=== PATIENT | female | born 1990 | race African-American/Black ===

== ENCOUNTER 2017-08-22 17:02 | Emergency (ER) | payer OTHER ==
--- NOTE | 2017-08-22 18:37 | ED ---
Lower Extremity - HPI Summary HPI Summary: This 27-year-old female fell down the stair steps yesterday she has left lateral ankle pain - History of Current Complaint Chief Complaint: EDExtremityLower Stated Complaint: LT ANKLE INJURY Time Seen by Provider: 08/22/17 18:21 Hx Obtained From: Patient Hx Last Menstrual Period: a little over a month ago Mechanism Of Injury: Twisted Onset of Pain: Immediate Onset/Duration: Days Severity Initially: Moderate Severity Currently: Moderate Pain Intensity: 9 Pain Scale Used: 0-10 Numeric Timing: Constant Location: Is Discrete @ - Lateral left ankle Character Of Pain: Aching, Throbbing Associated Signs And Symptoms: Positive: Swelling, Bruising Aggravating Factor(s): Standing, Ambulation Alleviating Factor(s): Rest, Elevation, Ice Able to Bear Weight: No - Allergies/Home Medications Allergies/Adverse Reactions: Allergies Allergy/AdvReac Type Severity Reaction Status Date / Time No Known Allergies Allergy Verified 08/22/17 19:02 PMH/Surg Hx/FS Hx/Imm Hx Previously Healthy: Yes - Immunization History Date of Influenza Vaccine: 06/03 Infectious Disease History: No Infectious Disease History: Denies: Traveled Outside the [place] in Last 30 Days - Family History Known Family History: Positive: None - Social History Occupation: Unemployed Lives: With Family Alcohol Use: Occasionally Hx Substance Use: No Substance Use Type: Reports: None Smoking Status (MU): Never Smoked Tobacco Review of Systems Constitutional: Negative Positive: Photophobia ENT: Negative Cardiovascular: Negative Gastrointestinal: Negative Genitourinary: Negative Positive: Arthralgia, Edema - left lateral ankle Positive: Bruising Neurological: Negative Psychological: Normal All Other Systems Reviewed And Are Negative: Yes Physical Exam Triage Information Reviewed: Yes Vital Signs On Initial Exam: Initial Vitals Temp Pulse Resp BP Pulse Ox 98.4 F 96 17 124/71 99 08/22/17 17:20 08/22/17 17:20 08/22/17 17:20 08/22/17 17:20 08/22/17 17:20 Vital Signs Reviewed: Yes Appearance: Positive: Well-Appearing, Well-Nourished, Pain Distress Skin: Positive: Warm, Skin Color Reflects Adequate Perfusion, Tender Head/Face: Positive: Normal Head/Face Inspection Eyes: Positive: Normal, EOMI, Conjunctiva Clear ENT: Positive: Normal ENT inspection, Hearing grossly normal. Negative: Trismus , Muffled voice, Hoarse voice Neck: Positive: Supple, Nontender Respiratory/Lung Sounds: Positive: Breath Sounds Present Cardiovascular: Positive: Normal, RRR, Pulses are Symmetrical in both Upper and Lower Extremities Musculoskeletal: Positive: Strength/ROM Intact - Left ankle, Limited @ - Left ankle, Edema Left - Ankle Neurological: Positive: Normal, Sensory/Motor Intact, Alert, Oriented to Person Place, Time Psychiatric: Positive: Normal AVPU Assessment: Alert - [place] Coma Scale Best Eye Response: 4 - Spontaneous Best Motor Response: 6 - Obeys Commands Best Verbal Response: 5 - Oriented Coma Scale Total: 15 Diagnostics - Vital Signs Vital Signs Temp Pulse Resp BP Pulse Ox 08/22/17 17:20 98.4 F 96 17 124/71 99 - Laboratory Lab Statement: Any lab studies that have been ordered have been reviewed, and results considered in the medical decision making process. - Radiology No standard instances Xray Interpretation: No Acute Changes Radiology Interpretation Completed By: ED Physician, Radiologist Lower Extremity Course/Dx - Course Assessment/Plan: This patient and we put into an Leobardo wrap and gel splint up on crutches nonweightbearing. She will be off work for 7 days she can use ibuprofen every 6 hours for pain and she'll follow up with orthopedics in 4-5 days - Diagnoses Provider Diagnoses: Left ankle sprain Discharge - Discharge Plan Condition: Stable Disposition: HOME Prescriptions: Ibuprofen TAB* [Motrin TAB* 600 MG] 600 mg PO Q6H PRN #30 tab PRN Reason: pain Patient Education Materials: Ibuprofen (By mouth), Ankle Sprain (ED), Crutch Instructions (ED), R.I.C.E. Treatment (ED) Forms: *Work Release Referrals: Norberto Lynch MD [Medical Doctor] - 5 Days
--- NOTE | 2017-08-22 20:23 | RAD ---
Indication: Left ankle pain. Sagittal and axial 3 views of left ankle demonstrate soft tissue swelling laterally. There is no fracture or dislocation. No other bone or joint abnormality is identified. IMPRESSION: Soft tissue swelling without fracture.
[2017-08-22] MEDS ORDERED: Ibuprofen TAB* 400 MG PO ONE (20:31)
[2017-08-22 21:15] VITALS: BP 121/72
== END 2017-08-22 21:05 | disposition home or self-care (01) ==
LOC: ED 17:02
DX: S93.402A Sprain of unspecified ligament of left ankle, initial encounter (principal); W10.9XXA Fall (on) (from) unspecified stairs and steps, initial encounter; Y92.9 Unspecified place or not applicable
CPT/HCPCS: 36415; 84702; 99282; A9270-GY

== ENCOUNTER 2017-11-19 07:49 | Emergency (ER) | payer OTHER ==
[2017-11-19 07:57] VITALS: BP 127/77
--- NOTE | 2017-11-19 09:14 | UC ---
Lower Extremity/Ankle HPI - HPI Summary HPI Summary: 3 months ago patient slipped on the steps and twisted her left ankle has lateral ankle pain and swelling and ecchymosis. Patient was unable to follow treatment recommendations was unable to maintain non weight bearing was able to follow up with orthopedic doctor. Patient comes in to urgent care today with continued pain and swelling in her lateral left ankle. - History of Current Complaint Chief Complaint: UCLowerExtremity Stated Complaint: ALLERGIES/Ankle INJURY Time Seen by Provider: 11/19/17 09:00 Hx Obtained From: Patient Hx Last Menstrual Period: 11/02/17 ?: No Onset/Duration: Gradual Onset, Lasting Days - +/- 12 weeks ago, Lasting Weeks Pain Intensity: 5 Pain Scale Used: 0-10 Numeric Aggravating Factor(s): Standing, Ambulation Able to Bear Weight: Yes - with pain - Allergies/Home Medications Allergies/Adverse Reactions: Allergies Allergy/AdvReac Type Severity Reaction Status Date / Time No Known Allergies Allergy Verified 11/19/17 07:58 Home Medications: Home Medications NK [No Home Medications Reported] 11/19/17 [History Confirmed 11/19/17] PMH/Surg Hx/FS Hx/Imm Hx Previously Healthy: Yes - Surgical History Surgical History: None - Family History Known Family History: Positive: None - Social History Occupation: Employed Full-time Lives: With Family Alcohol Use: Occasionally Substance Use Type: None Smoking Status (MU): Never Smoked Tobacco Review of Systems Constitutional: Negative Skin: Negative Eyes: Negative ENT: Negative Respiratory: Negative Cardiovascular: Negative Gastrointestinal: Negative Genitourinary: Negative Motor: Negative Neurovascular: Negative Musculoskeletal: Arthralgia - left lateral ankle, Edema - leaft lateral ankle Neurological: Negative Psychological: Negative Is Patient Immunocompromised?: No All Other Systems Reviewed And Are Negative: Yes Physical Exam Triage Information Reviewed: Yes Appearance: Well-Appearing, No Pain Distress, Well-Nourished Vital Signs: Initial Vital Signs Temp 97.6 F 11/19/17 07:53 Pulse 98 11/19/17 07:53 Resp 16 11/19/17 07:53 BP 127/77 11/19/17 07:53 Pulse Ox 100 11/19/17 07:53 Vital Signs Reviewed: Yes Eye Exam: Normal Eyes: Positive: Conjunctiva Clear ENT Exam: Normal ENT: Positive: Normal ENT inspection, Hearing grossly normal. Negative: Trismus , Muffled voice, Hoarse voice Dental Exam: Normal Neck exam: Normal Neck: Positive: Supple, Nontender Respiratory Exam: Normal Respiratory: Positive: Chest non-tender, No respiratory distress, No accessory muscle use Cardiovascular Exam: Normal Cardiovascular: Positive: RRR, Pulses Normal, Brisk Capillary Refill Musculoskeletal Exam: Normal Musculoskeletal: Positive: Strength Intact, ROM Intact, No Edema Neurological Exam: Normal Neurological: Positive: Alert, Muscle Tone Normal Psychological Exam: Normal Skin Exam: Normal Lower Extremity Course/Dx - Course Course Of Treatment: cam boot, ibuprofen, follow with Dr. Lynch--patient refused time off from work - Differential Dx/Diagnosis Provider Diagnoses: left ankle pain Discharge - Sign-Out/Discharge Documenting (check all that apply): Discharge/Admit/Transfer - Discharge Plan Condition: Stable Disposition: HOME Patient Education Materials: Ibuprofen (By mouth), Ankle Sprain (ED) Referrals: Norberto Lynch MD [Medical Doctor] - 3 Days - Billing Disposition and Condition Condition: STABLE Disposition: Home
--- NOTE | 2017-11-19 09:42 | RAD ---
HISTORY: Left ankle injury COMPARISONS: August 22, 2012 VIEWS: 3, Frontal, lateral, and oblique views of the left ankle FINDINGS: BONE DENSITY: Normal. BONES: There is no displaced fracture. JOINTS: There is no arthropathy. ALIGNMENT: There is no dislocation. SOFT TISSUES: There is mild circumferential soft tissue swelling. OTHER FINDINGS: None. IMPRESSION: SOFT TISSUE SWELLING. NO ACUTE OSSEOUS INJURY. IF SYMPTOMS PERSIST, RECOMMEND REPEAT IMAGING.
== END 2017-11-19 09:55 | disposition home or self-care (01) ==
LOC: UCEAST 07:49
DX: M25.572 Pain in left ankle and joints of left foot (principal); M25.472 Effusion, left ankle
CPT/HCPCS: 99212; G0463

== ENCOUNTER 2017-12-02 09:10 | Emergency (ER) | payer OTHER ==
--- OUTSIDE RECORDS SUMMARY | 2017-12-02 10:02 | XMS REPORT ---
:1990 External Reference #:[id number] Author Organization [facility] [employer] Address [address] [address] Phone [phone] Care Team Providers Name Role Phone Patient's Choice Primary Care Physician Unavailable Payers Type Date Identification Numbers Payment Provider Subscriber Commercial Policy Number: [id number] [employer] Alyssa Richardson PayID: [id number] [address] [address] [place] [address] Problems Description No Information Family History Date Family Member(s) Problem(s) Comments General Cancer General Diabetes General Hypertension General Stroke Social History Type Date Description Comments Lives With kids Occupation Currently Working ETOH Use Occasionally consumes alcohol Smoking Patient has never smoked Exercise Type/Frequency Exercises sporadically Allergies, Adverse Reactions, Alerts Date Description Reaction Status Severity Comments 01/08/2017 NKDA active Medications Medication Date Status Form Strength Qnty SIG Indications Ordering Provider No Active 01/08/2017 Active Unknown Medications Vital Signs Date Vital Result Comment 11/20/2017 Height 63 inches 5'3" Weight 153.00 lb Heart Rate 72 /min BP Systolic 112 mmHg BP Diastolic 80 mmHg Body Temperature 98.1 F Pain Level 5 BMI (Body Mass Index) 27.1 kg/m2 02/08/2017 Height 54 inches 4'6" Weight 145.00 lb Heart Rate 78 /min BP Systolic 128 mmHg BP Diastolic 80 mmHg Respiratory Rate 18 /min Body Temperature 97.2 F Pain Level 4 BMI (Body Mass Index) 35.0 kg/m2 01/24/2017 Height 54 inches 4'6" Weight 145.00 lb BP Systolic 118 mmHg BP Diastolic 72 mmHg Respiratory Rate 20 /min Body Temperature 97.4 F Pain Level 0 BMI (Body Mass Index) 35.0 kg/m2 01/12/2017 Height 54 inches 4'6" Weight 145.00 lb Heart Rate 80 /min Respiratory Rate 15 /min Pain Level 7 BMI (Body Mass Index) 35.0 kg/m2 01/08/2017 Height 54 inches 4'6" Weight 145.00 lb Heart Rate 76 /min BP Systolic 120 mmHg BP Diastolic 70 mmHg Respiratory Rate 16 /min Pain Level 6 BMI (Body Mass Index) 35.0 kg/m2 Results Description No Information Procedures Date CPT Code Description Status 01/12/2017 65457 Short Arm Cast Application Completed 01/08/2017 97954 Closed [place] Phalanx finger/thumb shaft w/o manipulation Completed Plan of Care 11/20/2017 - Carlos Alberto Baez, [id number] Sprain of other ligament of left ankle, initial encounterNew Xrays:MRI Lower Extremity Left W/OFollow up:Follow Up: after MRI
[2017-12-02 10:03] VITALS: BP 122/76
--- NOTE | 2017-12-02 10:15 | UC ---
Throat Pain/Nasal Jamel HPI - HPI Summary HPI Summary: Patient has had three days of sore throat, today she cannot swollow do to pain. right sided nasal congestion and fullness under her right eye. - History of Current Complaint Chief Complaint: UCRespiratory Stated Complaint: THROAT PAIN Time Seen by Provider: 12/02/17 10:06 Hx Obtained From: Patient Hx Last Menstrual Period: 12/02/17 ?: No Onset/Duration: Sudden Onset, Lasting Days Severity: Severe Pain Intensity: 9 Cough: Productive Associated Signs & Symptoms: Positive: Dysphagia, Hoarseness, Sinus Discomfort, Nasal Discharge - Allergies/Home Medications Allergies/Adverse Reactions: Allergies Allergy/AdvReac Type Severity Reaction Status Date / Time No Known Allergies Allergy Verified 12/02/17 10:03 PMH/Surg Hx/FS Hx/Imm Hx Previously Healthy: Yes - Surgical History Surgical History: None - Family History Known Family History: Positive: None Negative: Cardiac Disease, Hypertension - Social History Alcohol Use: Occasionally Substance Use Type: None Smoking Status (MU): Never Smoked Tobacco Review of Systems Constitutional: Negative Skin: Negative Eyes: Negative ENT: Sore Throat, Ear Ache, Nasal Discharge, Sinus Congestion Respiratory: Cough Cardiovascular: Negative Gastrointestinal: Negative Genitourinary: Negative Motor: Negative Neurovascular: Negative Musculoskeletal: Negative Neurological: Negative Psychological: Negative Is Patient Immunocompromised?: No All Other Systems Reviewed And Are Negative: Yes Physical Exam Triage Information Reviewed: Yes Appearance: Well-Nourished, Ill-Appearing, Pain Distress Vital Signs: Initial Vital Signs Temp 98.3 F 12/02/17 10:01 Pulse 87 12/02/17 10:01 Resp 18 12/02/17 10:01 BP 122/76 12/02/17 10:01 Pulse Ox 99 12/02/17 10:01 Vital Signs Reviewed: Yes Eye Exam: Normal ENT: Positive: Pharyngeal erythema, Nasal congestion, Nasal drainage, TM bulging Dental Exam: Normal Neck exam: Normal Neck: Positive: Supple, Nontender, Enlarged Nodes @ - left tonsillar Respiratory Exam: Normal Respiratory: Positive: Chest non-tender, Lungs clear, Normal breath sounds Cardiovascular Exam: Normal Cardiovascular: Positive: RRR, No Murmur, Pulses Normal Abdominal Exam: Normal Abdomen Description: Positive: Nontender, No Organomegaly, Soft Musculoskeletal Exam: Normal Neurological Exam: Normal Psychological Exam: Normal Skin Exam: Normal Throat Pain/Nasal Course/Dx - Course Course Of Treatment: hx obtained,exam performed ,meds reviewed, rapid strep obtained. - Differential Dx/Diagnosis Differential Diagnosis/HQI/PQRI: Laryngitis, Otitis Media, Pharyngitis, Sinusitis, URI Provider Diagnoses: right maxillary sinusitis Discharge - Sign-Out/Discharge Documenting (check all that apply): Discharge/Admit/Transfer - Discharge Plan Condition: Stable Disposition: HOME Prescriptions: Amoxicillin PO (*) [Amoxicillin 875 MG (*)] 875 mg PO BID #14 tab Patient Education Materials: Sinusitis (ED) Referrals: No Primary Care Phys,NOPCP [Primary Care Provider] - Additional Instructions: 1. take the medication as prescribed. 2. Warm salt water gargles, 3. Get plenty of rest and fluids 4. Follow up as needed. - Billing Disposition and Condition Condition: STABLE Disposition: Home
== END 2017-12-02 10:45 | disposition home or self-care (01) ==
LOC: UCEAST 09:10
DX: J32.0 Chronic maxillary sinusitis (principal)
CPT/HCPCS: 87651; 99212; G0463

== ENCOUNTER 2018-01-02 09:28 | Emergency (ER) | payer OTHER ==
[2018-01-02 09:37] VITALS: BP 112/72
--- NOTE | 2018-01-02 09:49 | UC ---
Throat Pain/Nasal Jaeml HPI - HPI Summary HPI Summary: Pt is a 26 y/o F c/o throat pain onsetting yesterday worsening by the time ready to leave for work. Assoc. Sx: congestion, sinus pressure, ear irritation. Denies: wheezing. Notes she had a sinus infection 1 month ago but did not finish meds. Pt also notes ear ringing for 3 months pretty bad worsened by lying down associated with sinus issues. - History of Current Complaint Chief Complaint: UCGeneralIllness Stated Complaint: SORE THROAT Hx Obtained From: Patient Hx Last Menstrual Period: 12/02/17 Onset/Duration: Lasting Days - Sunday, Still Present, Worse Since - AM Severity: Severe Pain Intensity: 10 Pain Scale Used: 0-10 Numeric Associated Signs & Symptoms: Positive: Sinus Discomfort, Nasal Discharge. Negative: Wheezing, Fever - Allergies/Home Medications Allergies/Adverse Reactions: Allergies Allergy/AdvReac Type Severity Reaction Status Date / Time No Known Allergies Allergy Verified 01/02/18 09:38 PMH/Surg Hx/FS Hx/Imm Hx Endocrine History: Other - Neg: DM Other Endocrine History: . Cardiovascular History: Other - neg: CAD, HTN Other Cardiovascular History: . - Surgical History Surgical History: Yes Surgery Procedure, Year, and Place: IUD REMOVAL - Family History Known Family History: Positive: Hypertension, Diabetes - Social History Occupation: Employed Full-time Lives: With Family Alcohol Use: Occasionally Substance Use Type: None Smoking Status (MU): Never Smoked Tobacco Review of Systems Constitutional: Negative - fever ENT: Sore Throat, Ear Ache, Sinus Congestion Respiratory: Negative - wheezing All Other Systems Reviewed And Are Negative: Yes Physical Exam - Summary Physical Exam Summary: General: well-appearing, no pain distress Skin: warm, color reflects adequate perfusion, dry Head: normal Eyes: EOMI, ROCAEL ENT: Posterior pharynx erythema, positive anterior cervical lymphadenopathy Neck: supple, nontender Respiratory: CTA, breath sounds present Cardiovascular: RRR Abdomen: soft, nontender Bowel: present Musculoskeletal: normal, strength/ROM intact Neurological: sensory/motor intact, A&O x3 Psychological: affect/mood appropriate Triage Information Reviewed: Yes Vital Signs: Initial Vital Signs Temp 98.6 F 01/02/18 09:29 Pulse 55 01/02/18 09:29 Resp 16 01/02/18 09:29 BP 112/72 01/02/18 09:29 Pulse Ox 100 01/02/18 09:29 Vital Signs Reviewed: Yes Throat Pain/Nasal Course/Dx - Course Course Of Treatment: PATIENT REPORTS > 10 DAYS OF SINUS SX. F/U PMD; RECHECK SOONER IF WORSE. - Differential Dx/Diagnosis Provider Diagnoses: SINUSITIS. PHARYNGITIS Discharge - Sign-Out/Discharge Documenting (check all that apply): Patient Departure - Discharge Plan Condition: Stable Disposition: HOME Prescriptions: Amoxicillin/Clavulanate TAB* [Augmentin TAB 875*] 875 mg PO BID #20 tab Patient Education Materials: Pharyngitis (ED), Sinusitis (ED) Forms: *Work Release Referrals: [facility] [place] [facility] [Outside] Additional Instructions: FOLLOW UP WITH YOUR DOCTOR. GET RECHECKED FOR ANY WORSENING OF YOUR CONDITION OR QUESTIONS OR CONCERNS. - Billing Disposition and Condition Condition: STABLE Disposition: Home
== END 2018-01-02 10:32 | disposition home or self-care (01) ==
LOC: UCEAST 09:28
DX: J32.9 Chronic sinusitis, unspecified (principal); J02.9 Acute pharyngitis, unspecified
CPT/HCPCS: 87651; 99212; G0463

== ENCOUNTER 2018-01-17 09:18 | Emergency (ER) | payer OTHER ==
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
--- NOTE | 2018-01-17 12:31 | RAD ---
INDICATION: Right knee injury. TECHNIQUE: 4 views of the right knee were obtained. FINDINGS: The bones are normal alignment. There is a small joint effusion present. No fracture is seen. Joint spaces appear maintained. IMPRESSION: SMALL JOINT EFFUSION, NO FRACTURE IS SEEN.
[2018-01-17 13:21] VITALS: BP 120/84
== END 2018-01-17 13:20 | disposition home or self-care (01) ==
LOC: ED 09:18
DX: S83.91XA Sprain of unspecified site of right knee, initial encounter (principal); Y09 Assault by unspecified means; Y92.9 Unspecified place or not applicable; Y99.9 Unspecified external cause status; Z33.1 Pregnant state, incidental
CPT/HCPCS: 36415; 84702; 99282

== ENCOUNTER 2018-03-13 13:47 | Emergency (ER) | payer OTHER ==
--- OUTSIDE RECORDS SUMMARY | 2018-03-13 13:53 | XMS REPORT | Continuity of Care Document ---
:1990 External Reference #:[id number] Author Name Miguel Griffiths MD Address [address] [place] [address] Payers Type Date Identification Numbers Payment Provider Subscriber Policy Number: [id number] [facility] Alyssa Richardson PayID: [id number] [address] [address] [place] [address] Advance Directives Description No Information Available Problems Date Description Provider Status Onset: 02/28/2018 Tinnitus of left ear Miguel Griffiths MD Active Family History Date Family Member(s) Problem(s) Comments General Asthma General Cancer General Hearing Loss Social History Type Date Description Comments Sex Unknown Occupation Unknown Tobacco Use Start: Unknown Never Smoked Cigarettes Tobacco Use Start: Unknown Never Smoked Cigars Tobacco Use Start: Unknown Never Smoked A Pipe Smokeless Tobacco Never Used Smokeless Tobacco ETOH Use Currently occasionally consumes alcohol Allergies, Adverse Reactions, Alerts Description No Known Drug Allergies Medications Medication Date Status Form Strength Qnty SIG Indications Ordering Provider Dha Active Capsules 200mg Unknown 000 Ondansetron Hx Tablets 4mg Take 1 Unknown 000 - Dispers Tablet Dissolved 018 In The Mouth Every 8 Hours as Needed For Nausea And Vomiting Immunizations Description No Information Available Vital Signs Date Vital Result Comment 02/28/2018 8:52am Weight 142.00 lb Weight 64.411 kg Height 64 inches 5'4" Height in cm's 162.6 cm BMI (Body Mass Index) 24.4 kg/m2 Results Description No Information Available Procedures Date Code Description Status 02/28/2018 39107 Tympanometry Completed 02/28/2018 00351 Comprehensive Audiogram Completed Encounters Type Date Location Provider Dx Diagnosis Office Visit 02/28/2018 [place] Miguel Griffiths, H93.12 Tinnitus, left ear 8:45a 06/18/07 Plan of Treatment 02/28/2018 - Miguel Griffiths [id number] Tinnitus, left earComments:Patient with symptoms of tinnitus without objective evidence of hearing loss. No other neurologicalsymptoms no other ear findings I reassured her at this time we did discuss some biofeedback techniques to reduce tinnitus but otherwise no other medical therapies indicated at this time. Recheck back when necessary.
[2018-03-13 13:59] VITALS: BP 117/72
--- NOTE | 2018-03-13 14:00 | UC ---
Throat Pain/Nasal Jamel HPI - HPI Summary HPI Summary: 27 yo female presents with sinus pain/pressure/congestion and runny nose for the last week. Started with a dry cough about 3 days ago. She has a sinus headache and feels her ears popping. She is currently 14 weeks - this is her 3rd . She saw her OB last week and said everything looked fine - per pt. She has not been taking anything OTC. Denies fever, chills, SOB, chest pain, abdominal pain, dysuria, vaginal bleeding/discharge. - History of Current Complaint Chief Complaint: UCRespiratory Stated Complaint: SORE THROAT HEADACHE RESP ISSUE Time Seen by Provider: 03/13/18 13:59 Hx Obtained From: Patient Hx Last Menstrual Period: 12/02/17 Onset/Duration: Gradual Onset Severity: Moderate Pain Intensity: 6 Pain Scale Used: 0-10 Numeric - Allergies/Home Medications Allergies/Adverse Reactions: Allergies Allergy/AdvReac Type Severity Reaction Status Date / Time No Known Allergies Allergy Verified 03/13/18 13:59 Home Medications: Home Medications Pnv No.95/Ferrous Fum/Folic AC [ Vitamin & Minera 28-0.8 mg] 1 tab PO [History] PMH/Surg Hx/FS Hx/Imm Hx - Additional Past Medical History Additional PMH: None - Surgical History Surgical History: None Surgery Procedure, Year, and Place: IUD REMOVAL - Family History Known Family History: Positive: Hypertension, Diabetes Negative: Cardiac Disease - Social History Occupation: Employed Full-time Lives: With Family Alcohol Use: None Substance Use Type: None Smoking Status (MU): Never Smoked Tobacco Review of Systems Constitutional: Negative Skin: Negative Eyes: Negative ENT: Ear Ache, Nasal Discharge, Sinus Congestion, Sinus Pain/Tenderness Respiratory: Cough Cardiovascular: Negative Gastrointestinal: Negative Neurovascular: Negative Neurological: Negative Psychological: Negative All Other Systems Reviewed And Are Negative: Yes Physical Exam - Summary Physical Exam Summary: GENERAL: NAD. WDWN. No pain distress. SKIN: No rashes, sores, lesions, or open wounds. HEENT: Head: AT/NC Eyes: EOM intact. Conjunctiva clear without inflammation or discharge. Ears: Hearing grossly normal. TMs intact, no bulging, erythema, or edema. Nose: Nasal mucosa moderately swollen and erythematous with yellow discharge. TTP maxillary and frontal sinus. Throat: Posterior oropharynx without exudates, erythema, or tonsillar enlargement. Uvula midline. NECK: Supple. Nontender. No lymphadenopathy. CHEST: CTAB. No r/r/w. No accessory muscle use. Breathing comfortably and in no distress. CV: RRR. Without m/r/g. Pulses intact. NEURO: Alert. PSYCH: Age appropriate behavior. Triage Information Reviewed: Yes Vital Signs: Initial Vital Signs Temp 98.6 F 03/13/18 13:54 Pulse 98 03/13/18 13:54 Resp 18 03/13/18 13:54 BP 117/72 03/13/18 13:54 Pulse Ox 99 03/13/18 13:54 Vital Signs Reviewed: Yes Throat Pain/Nasal Course/Dx - Course Course Of Treatment: Sinusitis - Differential Dx/Diagnosis Provider Diagnoses: Sinusitis Discharge - Sign-Out/Discharge Documenting (check all that apply): Patient Departure All imaging exams completed and their final reports reviewed: No Studies - Discharge Plan Condition: Stable Disposition: HOME Prescriptions: Amoxicillin PO (*) [Amoxicillin 500 MG CAP*] 500 mg PO Q12H #20 cap Patient Education Materials: Sinusitis (ED) Forms: *Work Release Referrals: No Primary Care Phys,NOPCP [Primary Care Provider] - Additional Instructions: If you develop a fever, shortness of breath, chest pain, new or worsening symptoms - please call your PCP or go to the ED. - Billing Disposition and Condition Condition: STABLE Disposition: Home
== END 2018-03-13 14:16 | disposition home or self-care (01) ==
LOC: UCEAST 13:47
DX: O26.892 Other specified pregnancy related conditions, second trimester (principal); J32.9 Chronic sinusitis, unspecified; Z3A.14 14 weeks gestation of pregnancy
CPT/HCPCS: 99212; G0463

== ENCOUNTER 2018-09-04 08:07 | Inpatient (IN) | payer SELFPAY ==
--- NOTE | 2018-09-04 10:21 | HP ---
General Information - Reason for Visit IUP@39+3, admit for IOL (SROM) - General Information Maternal Age: 28 Grav: 6 Para: 2 SAB: 3 IEA: 0 Estimated Due Date: 09/08/18 Determined By: LMP Gestational Age in Weeks/Days: 39+3 Maternal Blood Type and Rh: B Positive - Results this Serology/RPR Result: Non-Reactive Rubella Result: Immune HBsAg Result: Negative HIV Result: Negative GBS Culture Result: Negative Past Medical History Delivery History: Hx Uncomplicated Vaginal Delivery, See Records Delivery History Comment: G1: 02/2009, , epidural, midline episiotomy, 7lbs 7oz G2: SAB G3: 05/2011, , no anesthesia, intact labor 7 hours, 7lb 9oz G4: SAB G5: SAB G6: current Pertinent Past Medical History: Non-Contributory Pertinent Past Surgical History: See Records Past Surgical History Comment: IUD surgically removed in 04/2014 Pertinent Family History: See Records Family History Comment: Father: A&W Mother: asthma, diabetes, (unknown causes) PGM: BRCA PGF: unknown MGM: Stroke, d/t stroke, brain cancer MGF: d/t cancer - Antepartal Records Antepartal Records: Reviewed, Complicated by: - Anxiety, BV, yeast Review of Systems Constitutional: Comfortable CV Complaint: No Respiratory: Shortness of Breath: No Gastrointestinal: No Nausea/Vomiting, Normal Bowel Movement Genitourinary: Leaking Fluid, No Dysuria, Spotting Musculoskeletal: Contractions Neurological: No Headache, No Visual Changes Movement: Normal Exam Allergies/Adverse Reactions: Allergies No Known Allergies Allergy (Verified 03/13/18 13:59) VS: temp 97.2, HR 115, RR 20, BP 119/73, 100% Lab Values - Entire Visit: Laboratory Tests 09/04/18 08:28 Vag Amniotic Fld Detect Positive - Measurements Height: 5 ft 3 in Weight: 170 lb Weight in lbs: 170.513347 Body Mass Index (BMI): 30.1 Pre- Weight: 140 lb Weight Gained This : 30 lbs and 0 ozs - Exam Breast: Breast Exam Deferred CVA: No CVA Tenderness Extremities: No Edema Heart: Normal Rhythm/Heart Sounds HEENT: No Significant Findings Lungs: Clear Bilaterally Rectal: Rectal Exam Deferred Reflexes: DTR 2+ Targeted Exam Findings Estimated Weight: 7.5 lbs Cervical Exam: Fingertip Effacement: 50% Station: -2 Presenting Part: Vertex Membrane Status: SROM Amniotic Fluid Evaluation: Positive ROM Plus EFM Findings - External Monitor Findings Baseline Heart Rate: 135 External Monitor Findings: Accelerations Present, No Pattern of Variable or Late Decelerations, Variability Moderate External Monitor Findings Comment: No evidence of acidemia Contractions: Irregular, 45-90 Seconds Assessment/Plan - Assessment IUP@39+3 SROM, clear fluid at 0200, ROM+ positive GBS negative Irregular contractions No evidence of acidemia VE: unchanged from office visit on 08/30/18 - Plan Plan: Admit - Anticipate Vaginal Delivery Plan Comment: Plan: admit to L&D PARQ discussion about IOL for SROM Given Cabrera score, plan for Cervidil Does not want to be offered pain medication Anticipate progression to - Date/Time of Admission Date of Admission: 09/04/18 Time of Admission: 10:00
[2018-09-04] MEDS ORDERED: Buffered Lidocaine 1% SYRIN* 1 ML/SYRINGE INTRADERM ONE (10:37)
[2018-09-04] MEDS ORDERED: Lactated Ringers 1000 ML Bag* 1,000 ML IV ONE (10:37)
[2018-09-04] MEDS ORDERED: Dinoprostone* 10 MG VAG.SUPP VAGINAL ONE (10:37)
[2018-09-04] MEDS ORDERED: Lactated Ringers 1000 ML Bag* 1,000 ML IV SCH (11:00)
--- NOTE | 2018-09-04 12:26 | PN ---
Progress Note - Progress Note Date of Service: 09/04/18 Note: Pt sitting in bed, comfortable. Well supported by friend. FHT: 135, moderate variability, +accels, occasional mild variables with contraction No evidence of metabolic acidemia Irregular contractions, ~q10 mins, good resting tone Cervidil placed without complication Anticipate progression to active labor
[2018-09-04] MEDS ORDERED: Calcium Carbonate CHEW TAB* 500 MG (TUMS) PO ONE (17:13)
--- NOTE | 2018-09-04 17:17 | PN ---
Progress Note - Progress Note Date of Service: 09/04/18 Note: Pt resting in chair, describes contractions as more intense, but coping well Contractions every 7-9 minutes, palpate moderate, good resting tone Cervidil in place Pt's kids are coming to visit shortly Anticipate progression to active labor
--- NOTE | 2018-09-04 22:26 | PN ---
Progress Note - Progress Note Date of Service: 09/04/18 Note: Cervidil removed by RNANCELMO initially 4-5cm now 7cm with a bulging bag Pt is in bed using nitrous oxide for pain control, overwhelmed with contraction pain and requesting an epidural Anesthesia aware Family supportive at bedside Contractions every 2-3 mins, good resting tone No evidence of metabolic acidemia Anticipate progression to
[2018-09-04] MEDS ORDERED: OBEPIDURAL* 0 ML EPIDURAL ONE (22:35)
[2018-09-04 22:54] LABS: ABS Basophils 0 10^3/ul (0-0.2); ABS Eosinophils 0 10^3/ul (0-0.6); ABS Lymphocytes 0.9 10^3/ul (1.0-4.8); ABS Neutrophils 10.3 10^3/ul (1.5-7.7); ABS Nucleated RBC 0 10^3/ul; Eosinophil % 0.1 %; Hematocrit 36 % (33-41); Hemoglobin 11.5 g/dL (12.0-16.0); Lymphocyte % 7.6 %; Mean Corpuscular HGB Conc 32 g/dL (31-36); Mean Corpuscular Hemoglobin 27 pg (27-31); Mean Corpuscular Volume 82 fL (80-97); Mean Platelet Volume 9.7 fL (7.4-10.4); Nucleated Red Blood Cells % 0.2; Platelet Count 222 10^3/uL (150-450); Red Blood Count 4.34 10^6 /uL (3.70-4.87); Red Cell Distribution Width 18 % (10.5-15); White Blood Count 12.3 10^3/uL (3.5-10.8)
[2018-09-04] MEDS ORDERED: Oxytocin in LR* 20 UNITS/1,000 ML BAG IVPB ONE (23:31)
[2018-09-05] MEDS ORDERED: Glycerin ADULT SUPP PR PRN (00:34)
--- NOTE | 2018-09-05 00:42 | PROCNOTE ---
[facility] OB: Delivery Note - Nursery Level of Nursery: Regular/Bedside - Perineum Perineal Injury: Abrasion Only - Not Repaired Perineal Injury Comment: Right and left labia - Events Delivery Events of Note: Pitocin Only After Delivery - Additional Delivery Notes Additional Delivery Notes: Pt admitted at 39+3 with confirmed SROM, clear fluid. Pt was having irregular contractions, but no cervical change noted. Given increased risk of infection, the decision was made to proceed with an IOL. Cervidil was placed just after noon; pt tolerated well. Before 2100, RN pulled cervidil. Pt with regular, painful contractions, VE: 4/80/-1. Pt used nitrous oxide with moderate relief. At 7cm the pt requested an epidural. Before epidural could be placed, pt progressed to complete and complete. Pt pushed for 19 mins. Strong maternal pushing effort led to of liveborn female, shoulder followed easily. Length of labor 4 hours and 39 minutes. vigorous with spontaneous cry, heartbeat >110 BPM. Delivered to maternal abdomen. Cord clamped x2 and cut by pt 's sister. Spontaneous delivery of intact placenta, membranes complete. Fundus firm to massage with IV pitocin infusing. Minimal bleeding noted. EBL 200 mL. Careful inspection of the perineum revealed right and left labial abrasions, hemostatic, not repaired. At time of note, mother and infant in stable condition.
[2018-09-05] MEDS ORDERED: Oxytocin in LR* 20 UNITS/1,000 ML BAG IVPB SCH (01:00)
[2018-09-05] MEDS ORDERED: Lactated Ringers 1000 ML Bag* 1,000 ML IV SCH (01:00)
[2018-09-05] MEDS: Ibuprofen TAB* 600 MG PO PRN ×3 (01:25→18:18)
[2018-09-05] MEDS: Witch Hazel PAD* JAR TOPICAL PRN ×3 (03:47→19:49)
[2018-09-05] MEDS: Dibucaine 1% 28.35 GM TUBE PR PRN ×2 (03:47→12:30)
[2018-09-05] MEDS: Calcium Carbonate CHEW TAB* 500 MG (TUMS) PO PRN ×2 (08:13→13:42)
[2018-09-05] MEDS: Docusate CAP* 100 MG PO SCH ×3 (08:21→21:17)
[2018-09-05] MEDS ORDERED: Simethicone TAB* 80 MG TAB.CHEW PO SCH (08:30)
[2018-09-05] MEDS: Acetaminophen TAB* 325 MG PO PRN ×2 (13:11→19:49)
[2018-09-06] MEDS: Ibuprofen TAB* 600 MG PO PRN ×2 (00:40→08:52)
[2018-09-06 07:53] LABS: ABS Basophils 0 10^3/ul (0-0.2); ABS Eosinophils 0 10^3/ul (0-0.6); ABS Lymphocytes 1.9 10^3/ul (1.0-4.8); ABS Neutrophils 7.6 10^3/ul (1.5-7.7); ABS Nucleated RBC 0 10^3/ul; Eosinophil % 0.4 %; Hematocrit 28 % (33-41); Hemoglobin 9.1 g/dL (12.0-16.0); Lymphocyte % 18.1 %; Mean Corpuscular HGB Conc 33 g/dL (31-36); Mean Corpuscular Hemoglobin 27 pg (27-31); Mean Corpuscular Volume 81 fL (80-97); Mean Platelet Volume 9.2 fL (7.4-10.4); Nucleated Red Blood Cells % 0.1; Platelet Count 157 10^3/uL (150-450); Red Blood Count 3.39 10^6 /uL (3.70-4.87); Red Cell Distribution Width 18 % (10.5-15); White Blood Count 10.6 10^3/uL (3.5-10.8)
[2018-09-06] MEDS: Dibucaine 1% 28.35 GM TUBE PR PRN (08:51)
[2018-09-06] MEDS: Witch Hazel PAD* JAR TOPICAL PRN (08:51)
[2018-09-06] MEDS: Docusate CAP* 100 MG PO SCH (08:51)
[2018-09-06] MEDS ORDERED: Ferrous Gluconate TAB* 324 MG TAB ONE (08:56)
[2018-09-06] MEDS ORDERED: Ferrous Gluconate TAB* 324 MG TAB PO SCH (09:00)
[2018-09-06 10:11] VITALS: BP 111/61
[2018-09-06] MEDS: Acetaminophen TAB* 325 MG PO PRN (12:59)
[2018-09-07] MEDS ORDERED: Ferrous Gluconate TAB* 324 MG TAB PO SCH (09:00)
== END 2018-09-06 13:37 | disposition home or self-care (01) | DRG 807 ==
LOC: MCHOBOUT 08:07 → MCHOB 10:13
PROVIDERS: ADMIT Advanced Practice Midwife; ATTEND Advanced Practice Midwife
PROC: 10E0XZZ Delivery of Products of Conception, External Approach (ICD-10-PCS; principal; 2018-09-04)
PROC: 3E033VJ Introduction of Other Hormone into Peripheral Vein, Percutaneous Approach (ICD-10-PCS; 2018-09-04)
DX: O70.0 First degree perineal laceration during delivery (principal); Z37.0 Single live birth; O90.81 Anemia of the puerperium; D64.9 Anemia, unspecified; Z3A.39 39 weeks gestation of pregnancy
CPT/HCPCS: 36415; 84112; 85025; 86850; 86900; 86901; A9270-GY

== ENCOUNTER 2019-08-08 20:17 | Emergency (ER) | payer OTHER ==
[2019-08-08 21:05] VITALS: BP 122/81
[2019-08-08] MEDS ORDERED: Sulfamethox/Trimethoprim DS 800/160* TAB PO ONE (21:18)
--- NOTE | 2019-08-08 21:20 | UC ---
Complaint Female HPI - HPI Summary HPI Summary: 29-year-old woman comes in with chief complaint of urinary tract infection symptoms for 2 days. Started with discomfort with urination 2 days ago. Is like she has to go more frequently. She goes smaller amounts. No fevers or chills. She just started her menstrual cycle and she does have some low back pelvic cramping which she associated with her menstrual cycle. Denies any abnormal vaginal discharge or concern of STI. - History Of Current Complaint Chief Complaint: UCGU Stated Complaint: UTI SYMPTOMS Time Seen by Provider: 08/08/19 21:08 Hx Last Menstrual Period: 08/07/19 Pain Intensity: 8 - Allergies/Home Medications Allergies/Adverse Reactions: Allergies Allergy/AdvReac Type Severity Reaction Status Date / Time No Known Allergies Allergy Verified 08/08/19 21:02 Home Medications: Home Medications Sulfamethox/Trimethoprim DS* [Bactrim DS 800/160 TAB*] 1 tab PO BID #12 tab [Rx] PMH/Surg Hx/FS Hx/Imm Hx Previously Healthy: Yes - Surgical History Surgical History: Yes Surgery Procedure, Year, and Place: IUD REMOVAL - Family History Known Family History: Positive: None, Hypertension, Diabetes Negative: Cardiac Disease - Social History Alcohol Use: Occasionally Substance Use Type: None Smoking Status (MU): Never Smoked Tobacco - Immunization History Most Recent Influenza Vaccination: Unknown Most Recent Pneumonia Vaccination: Unknown Review of Systems All Other Systems Reviewed And Are Negative: Yes Constitutional: Positive: Other - SEE HPI Skin: Positive: Negative Eyes: Positive: Negative ENT: Positive: Negative Respiratory: Positive: Negative Cardiovascular: Positive: Negative Gastrointestinal: Positive: Other - SEE HPI Genitourinary: Positive: Dysuria, Frequency, Urgency Motor: Positive: Negative Neurovascular: Positive: Negative Musculoskeletal: Positive: Negative Neurological/Mental Status: Positive: Negative Psychological: Positive: Negative Is Patient Immunocompromised?: No Physical Exam Triage Information Reviewed: Yes Appearance: Well-Appearing, No Pain Distress, Well-Nourished Vital Signs: Initial Vital Signs Temp 97.8 F 08/08/19 20:58 Pulse 98 08/08/19 20:58 Resp 18 08/08/19 20:58 BP 122/81 08/08/19 20:58 Pulse Ox 100 08/08/19 20:58 Vital Signs Reviewed: Yes Eye Exam: Normal Eyes: Positive: Conjunctiva Clear Neck: Positive: Supple Respiratory: Positive: No respiratory distress Cardiovascular: Positive: RRR Abdomen Description: Positive: Other: - Mild tenderness to palpation suprapubic area.. Negative: CVA Tenderness (R), CVA Tenderness (L) Musculoskeletal: Positive: Strength Intact, ROM Intact Neurological: Positive: Alert, Muscle Tone Normal Psychological: Positive: Normal Response To Family, Age Appropriate Behavior Skin Exam: Normal Complaint Female Dx - Differential Dx/Diagnosis Provider Diagnosis: UTI (urinary tract infection) Discharge ED - Sign-Out/Discharge Documenting (check all that apply): Patient Departure All imaging exams completed and their final reports reviewed: No Studies - Discharge Plan Condition: Stable Disposition: HOME Prescriptions: Sulfamethox/Trimethoprim DS* [Bactrim DS 800/160 TAB*] 1 tab PO BID #12 tab Patient Education Materials: Urinary Tract Infection in Women (ED) Referrals: [facility] [Outside] Additional Instructions: FOLLOW UP WITH YOUR DOCTOR IF NOT COMPLETELY IMPROVED. GET REEVALUATED SOONER IF NOT IMPROVED OR WORSE; FEVER, YOU FEEL ILL, PAIN OR ANY QUESTIONS OR CONCERNS. - Billing Disposition and Condition Condition: STABLE Disposition: Home
[2019-08-08] MEDS ORDERED: Phenazopyridine TAB* 100 MG PO ONE (21:31)
== END 2019-08-08 21:57 | disposition home or self-care (01) ==
LOC: UCEAST 20:17
DX: N39.0 Urinary tract infection, site not specified (principal)
CPT/HCPCS: 81003; 87077; 87086; 87186; 99212; A9270-GY; G0463

== ENCOUNTER 2019-09-28 10:15 | Emergency (ER) | payer SELFPAY ==
--- NOTE | 2019-09-28 10:50 | UC ---
Throat Pain/Nasal Jamel HPI - HPI Summary HPI Summary: 29 yo female presents with sinus symptoms. She tells me that for the last 3-4 days she has been having sinus pain/pressure/congestion with post nasal drip and b/l ear pressure/popping sensation. Sinus pressure is worst over frontal and maxillary sinuses. She has not been taking anything OTC for her symptoms. Denies fever, chills, sore throat, SOB, chest pain, or cough. No recent travel or known exposure to COVID. - History of Current Complaint Stated Complaint: SINUS,SORETHROAT Time Seen by Provider: 09/28/19 10:49 Hx Obtained From: Patient Hx Last Menstrual Period: 08/07/19 Onset/Duration: Sudden Onset Severity: Moderate Pain Intensity: 5 Pain Scale Used: 0-10 Numeric - Allergies/Home Medications Allergies/Adverse Reactions: Allergies Allergy/AdvReac Type Severity Reaction Status Date / Time No Known Allergies Allergy Verified 09/28/19 10:55 Home Medications: Home Medications Amoxicillin PO (*) [Amoxicillin 875 MG (*)] 875 mg PO BID #14 tab 09/28/19 [Rx] Fluticasone NASAL SPRAY 50MCG* [Flonase NASAL SPRAY 50MCG*] 2 spray BOTH NARES DAILY #1 btl 09/28/19 [Rx] PMH/Surg Hx/FS Hx/Imm Hx - Additional Past Medical History Additional PMH: Anemia - Surgical History Surgical History: Yes Surgery Procedure, Year, and Place: IUD REMOVAL - Family History Known Family History: Positive: Hypertension, Diabetes Negative: Cardiac Disease - Social History Lives: With Family Alcohol Use: Occasionally Substance Use Type: None Smoking Status (MU): Never Smoked Tobacco - Immunization History Most Recent Influenza Vaccination: Unknown Most Recent Pneumonia Vaccination: Unknown Review of Systems All Other Systems Reviewed And Are Negative: No Constitutional: Positive: Negative Skin: Positive: Negative Eyes: Positive: Negative ENT: Positive: Ear Ache, Nasal Discharge, Sinus Congestion Respiratory: Positive: Negative Cardiovascular: Positive: Negative Gastrointestinal: Positive: Negative Neurological/Mental Status: Positive: Negative Psychological: Positive: Negative Physical Exam - Summary Physical Exam Summary: GENERAL: NAD. WDWN. No pain distress. SKIN: No rashes, sores, lesions, or open wounds. HEENT: Head: AT/NC Eyes: EOM intact. Conjunctiva clear without inflammation or discharge. Ears: Hearing grossly normal. TMs intact, no bulging, erythema, or edema. Nose: Nasal mucosa mildly swollen and erythematous with yellow/ clear discharge. TTP maxillary and frontal sinus. Positive post nasal drip Throat: Posterior oropharynx without exudates, erythema, or tonsillar enlargement. Uvula midline. NECK: Supple. Nontender. No lymphadenopathy. CHEST: CTAB. No r/r/w. No accessory muscle use. Breathing comfortably and in no distress. CV: RRR. Pulses intact. NEURO: Alert. PSYCH: Age appropriate behavior. Triage Information Reviewed: Yes Vital Signs: Vital Signs: Temp Pulse Resp BP Pulse Ox 97.8 F 91 16 113/79 99 09/28/19 10:51 09/28/19 10:51 09/28/19 10:51 09/28/19 10:51 09/28/19 10:51 Vital Signs Reviewed: Yes Throat Pain/Nasal Course/Dx - Course Course Of Treatment: Sinusitis. Discussed viral vs bacterial causes with the pt and she prefers to be on anbx at this time. - Differential Dx/Diagnosis Provider Diagnosis: Sinusitis Discharge ED - Sign-Out/Discharge Documenting (check all that apply): Patient Departure All imaging exams completed and their final reports reviewed: No Studies - Discharge Plan Condition: Stable Disposition: HOME Prescriptions: Amoxicillin PO (*) [Amoxicillin 875 MG (*)] 875 mg PO BID #14 tab Fluticasone NASAL SPRAY 50MCG* [Flonase NASAL SPRAY 50MCG*] 2 spray BOTH NARES DAILY #1 btl Patient Education Materials: Sinusitis (ED) Referrals: No Primary Care Phys,NOPCP [Primary Care Provider] - Additional Instructions: If you develop a fever, shortness of breath, chest pain, new or worsening symptoms - please call your PCP or go to the ED immediately. - Billing Disposition and Condition Condition: STABLE Disposition: Home
[2019-09-28 11:02] VITALS: BP 113/79
== END 2019-09-28 11:05 | disposition home or self-care (01) ==
LOC: UCEAST 10:15
DX: J32.9 Chronic sinusitis, unspecified (principal)
CPT/HCPCS: 99212; G0463

== ENCOUNTER 2022-08-24 15:13 | Inpatient (IN) ==
[2022-08-24 16:37] LABS: ABS Eosinophils 0.1 10^3/ul (0-0.6); ABS Lymphocytes 1.3 10^3/ul (1.0-4.8); ABS Monocytes 0.6 10^3/ul (0-0.8); ABS Neutrophils 4.9 10^3/ul (1.5-7.7); Eosinophil % 1.7 %; Hematocrit 35 % (35-47); Hemoglobin 11.5 g/dL (12.0-16.0); Lymphocyte % 19.1 %; Mean Corpuscular HGB Conc 33 g/dL (31-36); Mean Corpuscular Hemoglobin 28 pg (27-31); Mean Corpuscular Volume 86 fL (80-97); Mean Platelet Volume 7.5 fL (7.4-10.4); Platelet Count 578 10^3/uL (150-450); Red Blood Count 4.09 10^6 /uL (3.70-4.87); Red Cell Distribution Width 14 % (10-15)
[2022-08-24 17:14] LABS: Albumin 4.1 g/dL (3.2-5.2); Albumin/Globulin Ratio 1.5 (1-3); C Reactive Protein 43.49 mg/L (<8.01); Calcium 9.6 mg/dL (8.6-10.3); Creatinine, Serum 0.73 mg/dL (0.51-0.95); Globulin 2.7 g/dL (2-4); Total Bilirubin 0.4 mg/dL (0.2-1.0); Total Protein 6.8 g/dL (6.4-8.9); eGFR CKD-EPI 110.6 (>60)
[2022-08-24] MEDS ORDERED: Iohexol 300 (CONTRAST) 10 ML SDV IV ONE (17:27)
[2022-08-24] MEDS ORDERED: ceFAZolin VIAL 2 GM in NS 0.9% 100 ml BAG 100 ML IVPB ONE (21:13)
[2022-08-24] MEDS ORDERED: ceFAZolin 2 GM PREMIX 2 GM/50 ML BAG IV ONE (22:00)
[2022-08-25] MEDS: Heparin 5000 UNITS/ML 1 mL VIAL SUBCUT SCH ×4 (00:18→22:02)
[2022-08-25] MEDS ORDERED: HYDROcodone/ACETAMIN 5/325 mg TAB PO ONE (01:50)
[2022-08-25] MEDS ORDERED: ceFAZolin 2 GM in NS PREMIX 2 GM/100 ML BAG IVPB SCH (06:00)
[2022-08-25] MEDS ORDERED: ceFAZolin 2 GM PREMIX 2 GM/50 ML BAG IV SCH (06:00)
[2022-08-25 06:54] LABS: Activated Partial Thrombo Time 32.3 seconds (26.0-38.0); INR 1.24 (0.88-1.18)
[2022-08-25] MEDS ORDERED: Midazolam 2 mg/2 ml VIAL 1 mg/ml 2 ml VIAL (2 mg) ONE (10:20)
[2022-08-25] MEDS ORDERED: Vancomycin 1,500 MG in NS 0.9% 250 ml 250 ML IVPB ONE (11:00)
[2022-08-25] MEDS ORDERED: Vancomycin per Pharmacy 1 EA NOTE FOLLOW UP SCH (15:00)
[2022-08-25] MEDS: HYDROcodone/ACETAMIN 5/325 mg TAB PO PRN ×2 (15:04→22:13)
[2022-08-25] MEDS: Vancomycin 1000 MG in NS 0.9% 250 ML IVPB SCH (22:05)
[2022-08-26] MEDS: HYDROcodone/ACETAMIN 5/325 mg TAB PO PRN ×4 (04:00→22:47)
[2022-08-26] MEDS: Heparin 5000 UNITS/ML 1 mL VIAL SUBCUT SCH ×3 (05:33→21:13)
[2022-08-26] MEDS: Vancomycin 1000 MG in NS 0.9% 250 ML IVPB SCH ×2 (05:35→16:46)
[2022-08-26 06:59] LABS: Hematocrit 28 % (35-47); Hemoglobin 9.6 g/dL (12.0-16.0); Mean Corpuscular HGB Conc 34 g/dL (31-36); Mean Corpuscular Hemoglobin 29 pg (27-31); Mean Corpuscular Volume 86 fL (80-97); Mean Platelet Volume 7.9 fL (7.4-10.4); Platelet Count 417 10^3/uL (150-450); Red Blood Count 3.29 10^6 /uL (3.70-4.87); Red Cell Distribution Width 14 % (10-15); White Blood Count 5.2 10^3/uL (3.5-10.8)
[2022-08-26 07:27] LABS: C Reactive Protein 88.37 mg/L (<8.01); Calcium 8.5 mg/dL (8.6-10.3); Creatinine, Serum 0.62 mg/dL (0.51-0.95); Potassium 4.1 mmol/L (3.5-5.0); eGFR CKD-EPI 119.8 (>60)
[2022-08-26] MEDS: Lidocaine PATCH 5% PATCH TRANSDERM SCH (10:33)
[2022-08-26] MEDS: cefTRIAXone 1 gm/50 mL D5W 1 GM/50 ML BAG IV SCH (11:13)
[2022-08-26] MEDS ORDERED: Vancomycin Trough Check NOTE FOLLOW UP ONE (13:30)
[2022-08-26] MEDS: Vancomycin 1,250 MG in NS 0.9% 250 ml 250 ML IVPB SCH (15:17)
[2022-08-26] MEDS ORDERED: Naloxone 0.4 mg VIAL 0.4 mg/ml 1 ml VIAL IV PUSH PRN (22:11)
[2022-08-26] MEDS ORDERED: Senna TAB 8.6 mg TAB PO SCH (23:00)
[2022-08-27] MEDS: Vancomycin 1,250 MG in NS 0.9% 250 ml 250 ML IVPB SCH ×2 (00:32→07:23)
[2022-08-27] MEDS ORDERED: Hyaluronidase HUMAN 15 UNIT in Sodium Chloride 0.9% 0.9 ML INTRADERM ONE (00:45)
[2022-08-27] MEDS: Heparin 5000 UNITS/ML 1 mL VIAL SUBCUT SCH ×2 (05:46→14:33)
[2022-08-27] MEDS: HYDROcodone/ACETAMIN 5/325 mg TAB PO PRN ×2 (05:47→10:36)
[2022-08-27 06:17] LABS: Hematocrit 31 % (35-47); Hemoglobin 9.9 g/dL (12.0-16.0); Mean Corpuscular HGB Conc 33 g/dL (31-36); Mean Corpuscular Hemoglobin 28 pg (27-31); Mean Corpuscular Volume 85 fL (80-97); Mean Platelet Volume 7.6 fL (7.4-10.4); Platelet Count 453 10^3/uL (150-450); Red Blood Count 3.57 10^6 /uL (3.70-4.87); Red Cell Distribution Width 14 % (10-15); White Blood Count 5.2 10^3/uL (3.5-10.8)
[2022-08-27] MEDS ORDERED: Polyethylene Glycol 3350 17 GM PACKET PO SCH (08:00)
[2022-08-27] MEDS: Lidocaine PATCH 5% PATCH TRANSDERM SCH (09:25)
[2022-08-27] MEDS: cefTRIAXone 1 gm/50 mL D5W 1 GM/50 ML BAG IV SCH (10:12)
[2022-08-27 11:23] VITALS: BP 119/86
[2022-08-27] MEDS ORDERED: Vancomycin Trough Check NOTE FOLLOW UP ONE (14:30)
== END 2022-08-27 15:30 | disposition home or self-care (01) | DRG 813 ==
LOC: ED 15:13 → EDHOLD 15:13 → SSU 08-25 01:54
PROVIDERS: ADMIT Hospitalist; ATTEND Hospitalist

== ENCOUNTER 2022-11-08 16:10 | Observation (INO) ==
[2022-11-08 16:43] LABS: ABS Eosinophils 0.1 10^3/uL (0.0-0.5); ABS Monocytes 0.5 10^3/uL (0.0-0.9); ABS Neutrophils 3.7 10^3/uL (1.5-7.6); Eosinophil % 1.9 %; Hematocrit 38.9 % (35-45); Lymphocyte % 19.5 %; Mean Corpuscular Hemoglobin 27.6 pg (27-33); Mean Corpuscular Hgb Conc 33.3 g/dL (31-36); Mean Corpuscular Volume 82.8 fL (80-97); Mean Platelet Volume 8.6 fL (7.5-11.2); Nucleated Red Blood Cells % 0.1 /100 WBC (0.0-0.4); Platelet Count 315 10^3/uL (150-450); Red Cell Distribution Width 15.4 % (12-17); White Blood Count 5.3 10^3/uL (3.8-11.8)
[2022-11-08 16:59] LABS: Urine Appearance Clear; Urine Bilirubin Negative (Negative); Urine Blood 3+ (Negative); Urine Color Yellow; Urine Glucose Negative (Negative); Urine Ketones Negative (Negative); Urine Nitrite Negative (Negative); Urine Protein Negative (Negative); Urine Specific Gravity 1.024 (1.002-1.030); Urine Urobilinogen Negative (Negative)
[2022-11-08 17:04] LABS: Urine Bacteria Absent (Absent); Urine Red Blood Cell 1+(3-5/hpf) (Absent); Urine Squamous Epithelial Cell Present (Absent); Urine White Blood Cell Trace(0-5/hpf) (Absent)
[2022-11-08 17:31] LABS: Albumin 4.5 g/dL (3.2-5.2); Albumin/Globulin Ratio 1.7 (1-3); C Reactive Protein 14.65 mg/L (<8.01); Calcium 9.5 mg/dL (8.6-10.3); Creatinine, Serum 0.72 mg/dL (0.51-0.95); Globulin 2.6 g/dL (2-4); Total Bilirubin 0.3 mg/dL (0.2-1.0); Total Protein 7.1 g/dL (6.4-8.9); eGFR CKD-EPI 112.4 (>60)
[2022-11-08] MEDS ORDERED: Lactated Ringers 1000 ml BAG 1,000 ML IV ONE (21:31)
[2022-11-08] MEDS ORDERED: Bupivacaine 0.25% SDV PF 10 ML VIAL INJ ONE (23:11)
[2022-11-08] MEDS ORDERED: Acetaminophen IV 1 GM/100ML 1,000 MG/100 ML BAG IV ONE (23:16)
[2022-11-08] MEDS ORDERED: Ondansetron 4 mg VIAL 2 MG/ML 2 ml VIAL ONE (23:16)
[2022-11-08] MEDS ORDERED: Metoclopramide 5 MG/ML VIAL (10 mg) ONE (23:16)
[2022-11-08] MEDS ORDERED: Succinylcholine 200 mg VIAL 20 mg/ml 10 ml VIAL (200 mg) ONE ×2 (23:16→23:17)
[2022-11-08] MEDS ORDERED: Propofol 10 MG/ML 20 ML BTL ONE (23:16)
[2022-11-08] MEDS ORDERED: Dexamethasone IV 4 MG/ML VIAL 1 ml VIAL ONE (23:16)
[2022-11-08] MEDS ORDERED: fentaNYL 250 mcg/5 ml 50 MCG/ML 5 ml VIAL (250 MCG) ONE (23:17)
[2022-11-08] MEDS ORDERED: Rocuronium 50 mg VIAL 10 mg/ml 5 ml VIAL (50 mg) ONE (23:17)
[2022-11-08] MEDS ORDERED: HYDROmorphone 0.5 MG/0.5 ML SYRINGE ONE ×2 (23:22)
[2022-11-08] MEDS ORDERED: HYDROmorphone 1 MG/1 ML SYRINGE IV PRN (23:26)
[2022-11-08] MEDS ORDERED: Naloxone 0.4 mg VIAL 0.4 mg/ml 1 ml VIAL IV PRN (23:26)
[2022-11-08] MEDS ORDERED: Prochlorperazine 5 mg/ml 2 ml VIAL (10 mg) IV PRN (23:26)
[2022-11-08] MEDS ORDERED: fentaNYL 100 mcg/2 ml 50 MCG/ML VIAL IV PRN (23:26)
[2022-11-09] MEDS ORDERED: ceFAZolin 2 GM in NS PREMIX 2 GM/100 ML BAG IVPB ONE (00:15)
[2022-11-09] MEDS ORDERED: oxyCODONE/Acetamin 5/325 mg TAB PO PRN (01:37)
[2022-11-09 10:37] VITALS: BP 120/70
== END 2022-11-09 12:20 | disposition home or self-care (01) ==
LOC: ED 16:10 → OR 11-09 00:17 → SSU 11-09 00:17
PROVIDERS: ADMIT Obstetrics & Gynecology; ATTEND Obstetrics & Gynecology